=== PATIENT | male | born 1950 | race Two or more races ===

== ENCOUNTER 2019-01-27 05:55 | Day surgery (SDC) | payer OTHER ==
[~2019-01-27 05:55] MED LIST: FOLIC ACID1 MG PO; GABAPENT PO; HUMALOG KW100 UNIT/1 SQ; LANTUS; LIPITOR20 MG PO; PLAVIX PO; PLETAL PO; SERTRA; SERTRA PO; SERTRALINE HCL50 MG PO; STRESS B WITH1 EACH PO; SYNTHROID125 MCG PO; TAMS0.4C PO; XIGDUO XR 5 MG1 EAC1 PO
== END 2019-01-27 15:55 | disposition home or self-care (01) ==
LOC: CIR.AMB 05:55
DX: N47.1 Phimosis (principal)

== ENCOUNTER 2021-07-10 08:12 | Outpatient (CLI) | payer OTHER | END 2021-07-10 08:20 | disposition home or self-care (01) | LOC: SONOGRAMA 08:12 | PROVIDERS: ATTEND Internal Medicine Gastroenterology | DX: R16.0 Hepatomegaly, not elsewhere classified (principal); K26.0 Acute duodenal ulcer with hemorrhage ==

== ENCOUNTER → 2022-05-18 | Outpatient (CLI) | payer OTHER | END | disposition home or self-care (01) | LOC: NUCLEAR 09:22 | PROVIDERS: ATTEND Surgery | DX: I73.9 Peripheral vascular disease, unspecified (principal) ==

== ENCOUNTER 2023-02-21 12:50 | Emergency (ER) | payer OTHER ==
[~2023-02-21] VITALS: Ht 167.6 cm; Wt 82.6 kg
[2023-02-21] MEDS ORDERED: BACTRIM DS TAB1 EACH PO (15:49)
== END 2023-02-21 17:13 | disposition home or self-care (01) ==
LOC: ER 12:50
DX: S50.862A Insect bite (nonvenomous) of left forearm, initial encounter (principal); W57.XXXA Bitten or stung by nonvenomous insect and other nonvenomous arthropods, initial encounter; Y93.H2 Activity, gardening and landscaping; Y92.017 Garden or yard in single-family (private) house as the place of occurrence of the external cause; E11.9 Type 2 diabetes mellitus without complications; Z79.4 Long term (current) use of insulin